=== PATIENT | male | born 1950 | race Asian ===

== ENCOUNTER → 2019-11-02 | Outpatient (CLI) | payer MEDICARE, MEDICAID | END | disposition home or self-care (01) | LOC: RADPV 11:08 | PROVIDERS: ATTEND Internal Medicine Nephrology | DX: N18.3 Chronic kidney disease, stage 3 (moderate) (principal); N28.1 Cyst of kidney, acquired | CPT/HCPCS: 76770 ==

== ENCOUNTER → 2019-11-30 | Outpatient (CLI) | payer MEDICARE ==
[2019-11-30 13:19] LABS: CALCIUM, TOTAL 8.6 mg/dL (8.8-10.5); CREATININE 1.36 mg/dL (0.60-1.30); POTASSIUM 4.3 mmol/L (3.5-5.1)
[2019-11-30 14:23] LABS: APPEARANCE,URINE CLEAR (CLEAR); BILIRUBIN,URINE NEGATIVE (NEGATIVE); GLUCOSE, URINE (UA) NEGATIVE (NEGATIVE); KETONES,URINE NEGATIVE (NEGATIVE); LEUKOCYTE ESTERASE ,URINE NEGATIVE (NEGATIVE); NITRATE,URINE NEGATIVE (NEGATIVE); OCCULT BLOOD,URINE NEGATIVE (NEGATIVE); PROTEIN,URINE NEGATIVE (NEGATIVE); UROBILINOGEN,URINE 0.2 mg/dL (<=1.0)
[2019-11-30 16:18] LABS: CREATININE,URINE 45.6 mg/dL (30.0-125.0); SODIUM TIMED,URINE 70 mmol/L (20-110)
[2019-11-30 16:35] LABS: COLLECTION TIME,URINE 24 HR; CREAT CLEARANCE/1.73sq.meter 59 ml/min (85-125); CREATININE,SERUM FOR CRCL 1.36 mg/dL (0.60-1.30); SODIUM URINE, 24HR CALC 177 mmol/24H (40-220); TOTAL VOLUME,CREAT CLR 2525 mL; TPROTEIN TIMED,URINE < 6 mg/dL; TPROTEIN URINE, 24HRS COLL 151 mg/24Hr (0-165)
== END | disposition home or self-care (01) ==
LOC: LABPV 08:50
PROVIDERS: ATTEND Internal Medicine Nephrology
DX: I12.9 Hypertensive chronic kidney disease with stage 1 through stage 4 chronic kidney disease, or unspecified chronic kidney disease (principal); N18.3 Chronic kidney disease, stage 3 (moderate)
CPT/HCPCS: 81050; 82575; 84156; 84300